=== PATIENT | male | born 1990 | race Caucasian/White ===

== ENCOUNTER 2020-12-08 09:44 | Emergency (ER) | payer BC, SELFPAY ==
--- NOTE | ~2020-12-08 | XR_ITS ---
EXAMINATION: XR lumbar spine min 4V DATE: 12/08/2020 11:26 INDICATION: Lumbar pain post twisting injury TECHNIQUE: Anteroposterior, lateral, and bilateral oblique views of the lumbar spine, and cone-down l ateral view of the lumbosacral junction were obtained. COMPARISON: None. FINDINGS: Minimal lumbar levocurvature. Sagittal alignment is normal. Vertebral body heights are normal. Modera te disc height loss at L5-S1. Mild right-sided predominant disc height loss at L2-L3 and L3-L4. Addit ional mild disc height loss at T10-T11 and T11-T12. No pars interarticularis defects. Mild lower lumb ar facet osteoarthritis. Sacrum and bilateral sacral iliac joints are unremarkable. Phlebolith in the pelvis. Posterior sulci of the lungs are clear with no pleural effusions. IMPRESSION: 1. Minimal lumbar levocurvature with mild spondylosis. Reviewed, dictated and finalized at location A.
[2020-12-08 09:57] VITALS: BP 125/78; PULSE 66; RESP 18; TEMP 36.3; O2SAT 99
[2020-12-08] MEDS: diazePAM (*CRX) 5 MG TABLET PO (11:01)
[2020-12-08] MEDS: HYDROcodone/acetaminophen (*CRX) 5-325 MG TABLET 1 TAB PO (11:01)
--- NOTE | 2020-12-08 11:01 | ED.GENADULT ---
HPI - General Adult General Chief complaint: Back Pain/Injury Stated complaint: back pain Time Seen by Provider: 12/08/20 10:07 Source: patient, family and RN notes reviewed Mode of arrival: ambulatory Limitations: no limitations History of Present Illness HPI narrative: Patient is a 30-year-old male who presents with lower lumbar pain that began today after bending over to pick and shovel man an object and since had moderate aching pain radiating to the left buttock took ibuprofen and used an icy hot patch with minimal improvement presents for evaluation denies similar occurrence in the past on arrival is in the room in no distress does not appear uncomfortable. Activity is worse with movement Related Data Allergies Allergy/AdvReac Type Severity Reaction Status Date / Time No Known Allergies Allergy Verified 12/08/20 10:01 Review of Systems Review of Systems: All systems reviewed & are unremarkable except as noted in HPI and below PMFSH Past Medical History Medical History (Updated 12/08/20 @ 11:04 by Gavin Smith PA-C) Obesity Social History Social History Gender identity (if verbalized by the patient): Male Exam Narrative: Exam Narrative: GENERAL: Well-appearing, well-nourished, and in no acute distress. HEAD: Normocephalic, atraumatic. EYES: PERRLA and EOMI. ENT: Nares clear, no rhinorrhea or epistaxis. Mucous membranes moist. CHEST: Clear to auscultation. No respiratory distress. No wheezes rales or rhonchi HEART: Regular rate and rhythm. No murmur heard. Normal peripheral pulses.. EXTREMITIES: Normal range of motion. No edema. Tenderness of the lower lumbar region SKIN: Warm, dry, no rash. NEURO: No focal deficits. Alert and oriented x3. Cranial nerves II through XII grossly intact. Normal speech PSYCH: Normal mood and affect. Course Course Emergency Course: Patient in the room no distress aware of case findings treatment plan diagnosis has close follow-up with primary care will be discharged home on medications Vital Signs Vital signs: Vital Signs Temperature 97.3 F L 12/08/20 09:57 Pulse Rate 66 12/08/20 09:57 Respiratory Rate 18 12/08/20 09:57 Blood Pressure 125/78 12/08/20 09:57 Pulse Oximetry 99 12/08/20 09:57 Temperature 97.3 F L 12/08/20 09:57 Pulse Rate 66 12/08/20 09:57 Respiratory Rate 18 12/08/20 09:57 Blood Pressure 125/78 12/08/20 09:57 Pulse Oximetry 99 12/08/20 09:57 Medical Decision Making MDM Narrative Medical decision making narrative: Patients pain is positional in nature and localized to back without signs of cord compression or cauda equina based on neurological exam, skeletal exam and history. No fever or other significant factors to suggest osteomyelitis or spinal epidural abscess. No symptoms or signs to suggest pain is referred from abdominal or / cardiopulmonary sources. No pulsatile masses noted on exam. Patient ambulates with steady gait and is stable for outpatient management given case findings. . Vital Signs Vital Signs: Vital Signs Temperature 97.3 F L 12/08/20 09:57 Pulse Rate 66 12/08/20 09:57 Respiratory Rate 18 12/08/20 09:57 Blood Pressure 125/78 12/08/20 09:57 Pulse Oximetry 99 12/08/20 09:57 Temperature 97.3 F L 12/08/20 09:57 Pulse Rate 66 12/08/20 09:57 Respiratory Rate 18 12/08/20 09:57 Blood Pressure 125/78 12/08/20 09:57 Pulse Oximetry 99 12/08/20 09:57 Imaging Data Radiologist's impression: ITS Impressions Lumbar Spine X-Ray 12/08/20 11:27 IMPRESSION: 1. Minimal lumbar levocurvature with mild spondylosis. Discharge Plan Discharge Clinical Impression: Strain of lumbar region Patient Disposition: Home, Self-Care Condition: Stable Instructions: Antibiotic Form, Acute Low Back Pain (ED) Additional Instructions: Medications as needed and prescribed. Limit lifting and bending. You may a
[2020-12-08 12:46] VITALS: BP 120/68; PULSE 70; RESP 18; O2SAT 98
== END 2020-12-08 12:47 | disposition home or self-care (01) ==
LOC: ANHED 11:16
PROVIDERS: Emergency Provider Emergency Medicine; PCP Family Medicine
DX: S39.012A Strain of muscle, fascia and tendon of lower back, initial encounter (principal); E66.9 Obesity, unspecified; Z68.36 Body mass index [BMI] 36.0-36.9, adult; M47.816 Spondylosis without myelopathy or radiculopathy, lumbar region; X50.9XXS Other and unspecified overexertion or strenuous movements or postures, sequela
CPT/HCPCS: 72110; 99283; A9270

== ENCOUNTER 2021-12-13 09:02 | Emergency (ER) | payer BC, SELFPAY ==
[2021-12-13 09:07] VITALS: BP 129/89; PULSE 114; RESP 16; TEMP 37.4; O2SAT 98
--- NOTE | 2021-12-13 09:09 | ED.FEVER ---
HPI - Fever General Chief Complaint: Fever Stated Complaint: fever Time Seen by Provider: 12/13/21 09:03 History of Present Illness HPI Narrative: 31-year-old male presents the emergency room for evaluation of a fever. States fevers been present since yesterday, and has reached temperatures of up to 102. Patient states has been taking Tylenol to alleviate his fever and body aches. Denies shortness of breath, difficulty breathing, sinus congestion or postnasal drip, abdominal pain, or any open wounds. Related Data Allergies Allergy/AdvReac Type Severity Reaction Status Date / Time No Known Allergies Allergy Verified 12/13/21 09:09 Review of Systems Review of Systems: CONSTITUTIONAL: Reports fever EYES: Denies visual changes, redness, or discharge. ENT: Denies rhinorrhea, congestion, sore throat, or otalgia. CARDIOVASCULAR: Denies chest pain, palpitations, or edema. RESPIRATORY: Denies cough or dyspnea. GASTROINTESTINAL: Denies abdominal pain, nausea, vomiting, or diarrhea. GENITOURINARY: Denies dysuria or hematuria. SKIN: Denies rash or itching. MUSCULOSKELETAL: Denies back pain, joint pain, or myalgia. NEUROLOGIC: Denies headache, numbness, dizziness, or weakness. PSYCHIATRIC: Denies anxiety or depression. [facility] Past Medical History Medical History Obesity Social History Social History Gender identity (if verbalized by the patient): Male Exam Narrative: GENERAL: Well-appearing, well-nourished, no physical limitations, and in no acute distress. HEAD: Normocephalic, atraumatic. EYES: Conjunctivae normal, PERRLA and EOMI. ENT: External nose normal, Nares clear, no rhinorrhea or epistaxis. Mucous membranes moist. Oropharynx without tonsillar hypertrophy exudate or other lesions. External ears normal, bilateral TMs normal bilaterally NECK: Supple. No meningeal signs. No adenopathy or masses. No carotid bruits or JVD CHEST: Clear to auscultation. No respiratory distress. No wheezes rales or rhonchi. No tenderness. HEART: Regular rate and rhythm. No murmur heard. Normal peripheral pulses. ABDOMEN: Soft, nontender, nondistended, normal active bowel sounds. EXTREMITIES: Normal range of motion. No edema. No clubbing or cyanosis SKIN: Warm, dry, no rash. No noted wounds NEURO: No focal deficits. Alert and oriented x3. MAEW. CN's II-XI intact bilaterally, normal gait PSYCH: Cooperative. Normal mood and affect. Course Vital Signs Vital signs: Vital Signs Temperature 37.4 C 12/13/21 09:07 Pulse Rate 114 H 12/13/21 09:07 Respiratory Rate 16 12/13/21 09:07 Blood Pressure 129/89 12/13/21 09:07 Pulse Oximetry 98 12/13/21 09:07 Oxygen Delivery Room Air 12/13/21 09:07 Temperature 37.4 C 12/13/21 09:07 Pulse Rate 114 H 12/13/21 09:07 Respiratory Rate 16 12/13/21 09:07 Blood Pressure 129/89 12/13/21 09:07 Pulse Oximetry 98 12/13/21 09:07 Oxygen Delivery Room Air 12/13/21 09:07 MDM - Fever Lab Data Labs: Lab Results 12/13/21 12/13/21 12/13/21 Range/Units 09:13 10:13 10:13 Monoscreen Negative (Negative) SARS-CoV-2 RNA (RT-PCR) Negative Grp A Beta Strep Ag Cancelled Discharge Plan Discharge Clinical Impression: Viral infection, Fever of unknown origin Patient Disposition: Home, Self-Care Condition: Stable Instructions: Antibiotic Form, Upper Respiratory Infection (ED), Viral Syndrome (ED) Additional Instructions: Tylenol or ibuprofen as needed for body aches and fevers. Follow-up with your primary care physician as needed. Prescriptions: No Action cyclobenzaprine 10 mg tablet 10 mg PO TID PRN (Reason: muscle spasm) Qty: 14 0RF ibuprofen [IBU] 600 mg tablet 600 mg PO QID PRN (Reason: fever or pain) Qty: 7 0RF lidocaine 5 % adhesive patch,medicated 1 patch topical DAILY Qty: 1 0RF Rx Instructions:
[2021-12-13 09:57] LABS: SARS-CoV-2 RNA PCR Negative
[2021-12-13 11:14] LABS: Monoscreen Negative (Negative); Negative Monotest Control Negative (Negative); Positive Monotest Control Positive (Positive)
== END 2021-12-13 11:40 | disposition home or self-care (01) ==
PROVIDERS: Emergency Provider Nurse Practitioner Family; PCP Family Medicine
DX: B34.9 Viral infection, unspecified (principal); R50.9 Fever, unspecified; Z20.822 Contact with and (suspected) exposure to COVID-19; E66.9 Obesity, unspecified; Z68.41 Body mass index [BMI] 40.0-44.9, adult
CPT/HCPCS: 86308; 87081; 87147; 99283; C9803; U0003; U0005

== ENCOUNTER 2024-07-28 18:39 | Emergency (ER) | payer BC, SELFPAY ==
--- NOTE | ~2024-07-28 | XR_ITS ---
EXAMINATION: XR chest 1V portable DATE: 07/28/2024 19:13 INDICATION: Cough and fever. TECHNIQUE: A single frontal view of the chest was obtained. COMPARISON: None. FINDINGS: There is no pneumonia, pleural effusion, or pneumothorax. The heart size is normal. IMPRESSION: 1. No acute cardiopulmonary disease. Reviewed, dictated and finalized at location A. [facility]
--- OUTSIDE RECORDS SUMMARY | 2024-07-28 18:40 | XMS_ITS | Clinical Summary ---
Author Organization [facility] Address [address] [facility] [address] [place] [address] Care Team Providers Care Water And Sewer Systems Superintendent Name Role Phone Amara Edmonds MD Primary Care Provider Diya Musa MD Unavailable [phone] Allergies Active Allergy Reactions Criticality Noted Date Comments Venom-Honey Bee Swelling Medium 12/03/2023 Medications anastrozole (ARIMIDEX) 1 mg tablet Take 1 tablet (1 mg total) by mouth daily 12/02/2023 Active clomiPHENE (CLOMID) 50 mg tablet Take 1 tablet (50 mg total) by mouth daily 1/2 pill every day Active Active Problems No known active problems Immunizations Immunization Administration Dates Next Due Influenza, Unspecified 03/09/2023(Deferred: Jolanta ent Refused) Tdap 07/27/2019 Surgical History Surgery Date Site/Laterality Comments WISDOM TOOTH EXTRACTION Medical History Medical History Date Comments 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 Chickenpox Family History Medical History Relation Name Comments Breast cancer Maternal Grandmother Stroke Maternal Grandmother pediabetes Maternal Grandmother Arthritis Mother prediabetes Mother Breast cancer Mother's Sister Diabetes Paternal Grandfather Lung cancer Paternal Grandfather Diabetes Paternal Grandmother Lung cancer Paternal Grandmother Colon cancer Neg Hx Relation Name Status Comments Maternal Grandmother Mother Mother's Sister Other Paternal Grandfather Paternal Grandmother Social History Tobacco Use Types Packs/Day Years Used Date Smoking Tobacco: Never Smokeless Tobacco: Never PHQ-2 Answer Date Recorded PHQ-2 Total Score (If total score is 3 or more points, staff should administer the PHQ-9) 1 12/03/2023 Personal Safety Answer Date Recorded Getting School Help Needed Not on file 08/13 Sex and Gender Information Value Date Recorded Sex Assigned at Not on file 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 Gender Identity Not on file Sexual Orientation Not on file Obstetrics History Last Filed Vital Signs Vital Sign Reading Time Taken Comments Blood Pressure 115/80 12/03/2023 2:27 PM CDT Pulse 82 12/03/2023 2:27 PM CDT Temperature 36.7 C (98 F) 12/03/2023 2:27 PM CDT Respiratory Rate 20 12/03/2023 2:27 PM CDT Oxygen Saturation - - Inhaled Oxygen Concentration - - Weight 143 kg (315 lb 3.2 oz) 12/03/2023 2:27 PM CDT Height 171.5 cm (5' 7.52 ) 12/03/2023 2:27 PM CD T Body Mass Index 48.61 12/03/2023 2:27 PM CDT Plan of Treatment Health Maintenance Due Date Last Done Comments Hepatitis B Screening 2009 Pneumococcal vaccine <65 (1 of 2 - PCV) 2010 Zoster Vaccine (1 of 2) 2010 Influenza Vaccine (#1) 2024 Depression Screening 12/02/2024 12/03/2023, 12/03/2023 Regular Well Visit/Exam 18-64 12/02/2024 12/03/2023 DTaP/Tdap/Td Vaccine (2 - Td or Tdap) 07/27/2029 07/27/2019 Hepatitis C Screening Completed 03/11/2024 , 12/03/2023 HPV Vaccines Aged Out No longer eligi ble based on patient's age to complete this topic Procedures Procedure Name Priority Date/Time Associated Diagnosis Comments HEPATITIS C ANTIBODY Routine 03/11/2024 2:32 PM CDT from Last 3 Months or Most Recently Relevant to Health Maintenance Results * Hepatitis C antibody (03/11/2024 2:32 PM CDT) Hep C Ab NON-REACTI VE NON-REACT ROSANNE [facility] Comment: HCV antibody was non-reactive. There is no laboratory evidence of HCV infection. In most cases, no further action is required. However, if recent HCV exposure is suspected, a test for HCV RNA (test code 75968) is suggested. For additional information please refer to http://education.[employer].uSpeak/faq/OWZ49w3 (This link is being provided for informational/ educational purposes only.) 03/11/2024 2:32 PM CDT 03/11/2024 2:33 PM CDT us Judith Merlos MD LAB MICROBIOLOGY - GENERAL O RDERABLES Final Result [facility] [address] [facility] [place] [address] from Last 3 Months or Most Recently Relevant to Health Maintenance Insurance FORMERLY [facility], [facility]–1983 Care Teams Water And Sewer Systems Superintendent Relationship Specialty Start Date End Date Amara Edmonds MD PCP - General Family Medicine 12/03/23 Diya Musa MD [address] [place] [address] Consulting Physician Urology 12/03/23
--- OUTSIDE RECORDS SUMMARY | 2024-07-28 18:40 | XMS_ITS | Referral Summary ---
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 There is no laboratory evidence of HCV infection. In most cases, no further action is required. However, if recent HCV exposure is suspected, a test for HCV RNA (test code 83695) is suggested. For additional information please refer to http://education.[employer]/faq/UYI02e1 (This link is being provided for informational/ educational purposes only.) 03/11/2024 2:32 PM CDT 03/11/2024 2:33 PM CDT us uJdith Merlos MD LAB MICROBIOLOGY - GENERAL O RDERABLES Final Result [facility] [address] [place] [address] from Last 3 Months or Most Recently Relevant to Health Maintenance Insurance [facility] Care Teams Signaling Design Engineer Relationship Specialty Start Date End Date Amara Edmonds MD PCP - General Family Medicine 12/03/23 Diya Musa MD [address] [facility] [address] [place] [address] Consulting Physician Urology 12/03/23
[2024-07-28 18:41] VITALS: BP 165/92; PULSE 100; RESP 16; TEMP 38.2; O2SAT 98
--- NOTE | 2024-07-28 18:58 | ECG_ITS ---
Test Date: 2024-07-28 19:15:29 Measurements Intervals [place] Rate: 90 P: 42 MN: 143 QRS: 11 QRSD: 92 T: 2 QT: 333 QTc: 408 Interpretive Statements SINUS RHYTHM BORDERLINE T WAVE ABNORMALITY- INFERIOR LEADS BASELINE ARTIFACT- I, II, III, AVR, AVL, AVF BORDERLINE ECG No previous ECG available for comparison Electronically Signed On 07-29-2024 05:47:11 QUAL FIELD MANAGER by Byron Booker D.O.
[2024-07-28 19:24] VITALS: BP 130/79; PULSE 99; RESP 18; TEMP 36.8; O2SAT 96
[2024-07-28] MEDS: IBUPROFEN 400 MG TABLET 800 MG PO (19:25)
[2024-07-28] MEDS: ACETAMINOPHEN 500 MG TABLET 1000 MG PO (19:26)
[2024-07-28 19:34] VITALS: RESP 18
[2024-07-28 19:35] LABS: Influenza A QL RT-PCR Positive (Negative); Influenza B QL RT-PCR Negative (Negative); RSV RNA, RT-PCR Negative (Negative); SARS-CoV-2 RNA PCR Negative (Negative)
--- NOTE | 2024-07-28 19:39 | ED.GENADULT ---
HPI - General Adult General Chief complaint: Fever Stated complaint: fever Time Seen by Provider: 07/28/24 18:51 History of Present Illness HPI narrative: 33-year-old male presenting ED for evaluation of fevers. Patient has been having headaches body aches fevers for last several days. He has had decreased oral intake. No nausea vomiting diarrhea. No chest pain shortness of breath abdominal pain or urinary symptoms. Patient had a viral illness about 2 months ago and has had a persistent dry cough afterwards and he is unsure if it is related to his current illness. Related Data Allergies Allergy/AdvReac Type Severity Reaction Status Date / Time No Known Allergies Allergy Verified 07/28/24 19:27 [facility] Past Medical History Medical History Obesity Social History Social History Gender identity (if verbalized by the patient): Male Exam Narrative: APPEARANCE: No apparent distress. Head: atraumatic. TMs normal, throat normal EYES: EOMI, NOSE: Atraumatic NECK: Trachea midline RESPIRATORY: No increased rate of breathing CTAB CARDIOVASCULAR: RRR, no peripheral edema ABDOMINAL: Non-distended soft MUSCULOSKELETAl: No obvious deformities NEURO: Alert. Moving 4/4 extremities SKIN:: Warm, dry. Normal color PSYCHIATRIC: Normal affect Course Vital Signs Vital signs: Vital Signs Temperature 100.8 F H 07/28/24 18:41 Pulse Rate 100 07/28/24 18:41 Respiratory Rate 16 07/28/24 18:41 Blood Pressure 165/92 H 07/28/24 18:41 Pulse Oximetry 98 07/28/24 18:41 Temperature 98.3 F 07/28/24 19:24 Pulse Rate 99 07/28/24 19:24 Respiratory Rate 18 07/28/24 19:34 Blood Pressure 130/79 07/28/24 19:24 Pulse Oximetry 96 07/28/24 19:24 Medical Decision Making [facility] Narrative Medical decision making narrative: -Course: 33-year-old male presenting with flu-like symptoms. Positive for influenza A. Otherwise well-appearing with no concerning findings on history and physical. Patient will be discharged with Motrin Tylenol. Given return precautions. -DDX includes but is not limited to: Flu, COVID viral illness pneumonia Vital Signs Vital Signs: Vital Signs Temperature 100.8 F H 07/28/24 18:41 Pulse Rate 100 07/28/24 18:41 Respiratory Rate 16 07/28/24 18:41 Blood Pressure 165/92 H 07/28/24 18:41 Pulse Oximetry 98 07/28/24 18:41 Temperature 98.3 F 07/28/24 19:24 Pulse Rate 99 07/28/24 19:24 Respiratory Rate 18 07/28/24 19:34 Blood Pressure 130/79 07/28/24 19:24 Pulse Oximetry 96 07/28/24 19:24 Lab Data Labs: Lab Results 07/28/24 Range/Units 18:51 Influenza A (RT-PCR) Positive A (Negative) Influenza B (RT-PCR) Negative (Negative) RSV (RT-PCR) Negative (Negative) SARS-CoV-2 RNA (RT-PCR) Negative (Negative) Discharge Plan Discharge Clinical Impression: Flu Patient Disposition: Home, Self-Care Condition: Stable Instructions: Antibiotic Form, Viral Syndrome (ED) Additional Instructions: You have the flu. Use Motrin and Tylenol for fevers. Please drink plenty of fluids. If you feel your condition is getting worse he return the ED for re-evaluation. Patient Language: Belgian Prescriptions: New acetaminophen 500 mg tablet 1,000 mg PO TID PRN (Reason: isabel) 7 Days Qty: 42 0RF ibuprofen 800 mg tablet 800 mg PO TID PRN (Reason: pain) 7 Days Qty: 21 0RF No Action cyclobenzaprine 10 mg tablet 10 mg PO TID PRN (Reason: muscle spasm) Qty: 14 0RF ibuprofen [IBU] 600 mg tablet 600 mg PO QID PRN (Reason: fever or pain) Qty: 7 0RF lidocaine 5 % adhesive patch,medicated 1 patch topical DAILY Qty: 1 0RF Rx Instructions: leave on most painful area for up to 12 hrs, dispense one box Follow-up/Referrals: PHYSICIAN,BILL CHECKER [Primary Care Provider] -
== END 2024-07-28 19:50 | disposition home or self-care (01) ==
PROVIDERS: Emergency Medicine; Emergency Provider Emergency Medicine
DX: J10.1 Influenza due to other identified influenza virus with other respiratory manifestations (principal); Z20.822 Contact with and (suspected) exposure to COVID-19; E66.9 Obesity, unspecified; Z68.42 Body mass index [BMI] 45.0-49.9, adult
CPT/HCPCS: 71045; 87637; 93005; 99283; A9270